=== PATIENT | female | born 1995 | race Caucasian/White ===

== ENCOUNTER 2020-05-01 07:16 | Outpatient (CLI) | payer MEDICAID, SELFPAY ==
[2020-05-04 02:34] LABS: SARS-CoV-2 RNA Undetected (Undetected); SARS-CoV-2 Specimen Source Nasopharynx
== END 2020-05-01 07:36 ==
DX: Z11.59 Encounter for screening for other viral diseases (principal)
CPT/HCPCS: U0003

== ENCOUNTER 2020-12-12 15:10 | Outpatient (CLI) | payer OTHER, MEDICAID, SELFPAY ==
[2020-12-12] MEDS: Breeza Beverage 473 ML BTL PO ×2 (12:13→12:14)
[2020-12-12] MEDS: Omnipaque 350 MG/ML 50 ML BTL IJ (12:13)
[2020-12-12 12:44] LABS: Abs Immature Grans 0.02 10^3/uL (0.0-0.06); Absolute Basophil Count 0.04 10^3/uL (0.0-0.2); Absolute Eosinophil Count 0.07 10^3/uL (0.0-0.7); Absolute Lymphocyte Count 1.45 10^3/uL (1.2-3.4); Absolute Monocyte Count 0.31 10^3/uL (0.1-0.8); Absolute Neutrophil Count 4.86 10^3/uL (1.2-6.7); Basophils % 0.6; HCT 35.5 % (36.0-46.0); HGB 10.9 g/dL (11.2-15.7); Immature Grans % 0.3; Lymphocytes % 21.5; MCH 24.6 pg (27.0-33.0); MCHC 30.7 % (32.0-36.0); MCV 80.1 fL (80-95); MPV 11.1 fL (8.0-11.0); Monocytes % 4.6; Nucleated RBC 0 %; Platelet Count 297 10^3/uL (130-400); RBC 4.43 10^6/uL (3.93-5.22); RDW 16.3 % (11.7-14.6); RDW-SD 46.9 fL; WBC 6.75 10^3/uL (4.4-10.8)
[2020-12-12 13:01] LABS: ALT 14 U/L (14-59); AST 17 U/L (15-37); Albumin 3.8 g/dL (3.4-5.0); Alkaline Phosphatase 89 U/L (46-116); Anion Gap 8.5 mmol/L (3-11); BUN 7 mg/dL (7-18); Bilirubin, Total 0.4 mg/dL (0.2-1.0); CO2 27.5 mmol/L (21.0-32.0); CREATININE 0.7 mg/dL (0.55-1.02); Chloride 105 mmol/L (98-107); Glucose 95 mg/dL (74-106); Potassium 4.2 mmol/L (3.5-5.1); Sodium 141 mmol/L (136-145); Total Protein 8.2 g/dL (6.4-8.2)
[2020-12-12] MEDS: Normal Saline - Diluent 50 ML VIAL IV (13:13)
[2020-12-12] MEDS: Omnipaque 350 MG/ML 100 ML BTL IJ (13:13)
--- NOTE | 2020-12-12 13:56 | DI.CT_ITS ---
Exam(s) CT ABDOMEN PELVIS W EXAM: CT ABDOMEN PELVIS W CLINICAL HISTORY: RLQ ABD PAIN, R10.31. TECHNIQUE: Imaging Protocol: Axial computed tomography images with coronal and sagittal reformatted images were created and reviewed CONTRAST MATERIAL: Intravenous: Omnipaque 100cc Oral: Yes COMPARISON: No exams were available for comparison FINDINGS: VISUALIZED LUNG BASES: No nodules nor pleural effusions evident. ABDOMEN: There is no ascites. LIVER: There are no focal hepatic lesions evident . GALLBLADDER/BILIARY: No obvious gallbladder pathology. CBD is not dilated. PANCREAS: No evidence of pancreatic mass nor dilatation of the pancreatic duct. SPLEEN: Spleen is not enlarged. No obvious intrasplenic lesions. Splenic and portal veins are paten t. ADRENALS: There are no significant adrenal masses. KIDNEYS:No cysts evident. No solid renal masses. No calculi nor hydronephrosis.. ABDOMINAL AORTA: Abdominal aorta is not enlarged. LYMPH NODES:There is no retroperitineal nor paraaortic adenopathy. ABDOMINAL WALL: No evidence of significant anterior abdominal wall hernia. GI: There is no evidence of bowel obstruction, free air, nor abscess. PELVIS: GI: No evidence of appendicitis.No evidence of sigmoid diverticulitis. LYMPH NODES: There is no intrapelvic nor inguinal adenopathy. REPRODUCTIVE: There is a large mass above the urinary bladder extending off the superior aspect of th e uterus and extending up from the pelvis into the abdomen measuring 19.5 cm cephalocaudal length by 10 cm AP by 16 cm wide. This is probably multiple grossly abnormal and necrotic fibroids. Is diffic ult to isolate the ovaries as separate from this structure. There is no free fluid in the pelvis URINARY BLADDER: No calculi nor obvious masses evident OSSEOUS: No significant osseous lesions. IMPRESSION: 1. Main finding here is huge pelvic mass arising out of the pelvis into the abdomen measuring approxi mately 19.5 x 10 x 16 cm and probably multiple huge uterine fibroids, some necrotic. It is difficult to delineate the ovaries as separate structures.. However, this is probably uterus origin. There i s no free fluid in the pelvis. 2. There is no ascites in the upper abdomen. 3. No obvious lymphadenopathy 4. Visualized lung bases are clear. RADIATION DOSE DELIVERED: 1,424.58mGy.cm Total DLP DATA REPOSITORY: All CT scans at this facility are submitted to the National Radiology Data Registry (NRDR) Dose Index Registry (DIR) with the [employer] (ACR). RADIATION OPTIMIZATION: All CT scans at this facility use at least one of these dose optimization te chniques: automated exposure control; mA and/or kV adjustment per patient size (includes targeted exa ms where dose is matched to clinical indication); or iterative reconstruction.
== END 2020-12-12 15:30 ==
PROVIDERS: Visit Provider Nurse Practitioner Family
DX: R10.31 Right lower quadrant pain (principal); R19.09 Other intra-abdominal and pelvic swelling, mass and lump; D25.9 Leiomyoma of uterus, unspecified
CPT/HCPCS: 80053; 74177; 85025; J3490; Q9967

== ENCOUNTER 2020-12-13 16:04 | Outpatient (REF) | payer OTHER, MEDICAID, SELFPAY ==
--- NOTE | 2020-12-13 15:15 | ENDOMET_PTH ---
PATIENT: Arielle Jones LOC: [facility] U#:[id number] AGE/SX: 25/F ROOM: RE12/13/[address]: Symone Mann DO : 1995 BED: DIS: 12/13/2020 SPEC #: [id number] RECD: 12/13/20 17:19 STATUS: AMIRA REQ #: [id number] RYANN: 12/13/20 15:[address]: Symone Mann DEPT: Surgical Specimen RECD BY: Ana Baez ENTERED: 12/13/20 17:20 SP TYPE: Endomet OTHR DR: No Local Tissues: 1 - ENDOMETRIUM BX/CURRETTE Procedures: GROSS AND MICRO LEVEL 4 Comments: [id number]
== END 2020-12-13 16:05 | disposition home or self-care (01) ==
LOC: LBN 16:04
PROVIDERS: Visit Provider Obstetrics & Gynecology
DX: N93.8 Other specified abnormal uterine and vaginal bleeding (principal); D25.9 Leiomyoma of uterus, unspecified; N85.8 Other specified noninflammatory disorders of uterus
CPT/HCPCS: 88305

== ENCOUNTER 2021-05-06 03:02 | Outpatient (CLI) | payer MEDICAID, SELFPAY ==
[2021-05-06 15:51] LABS: Source Nasal/Nares
[2021-05-06 21:29] LABS: COVID-19 PCR Negative (Negative)
== END 2021-05-06 03:03 | disposition home or self-care (01) ==
LOC: LBO 03:02
PROVIDERS: PCP Nurse Practitioner Family; Visit Provider Family Medicine
DX: Z20.822 Contact with and (suspected) exposure to COVID-19 (principal); Z01.818 Encounter for other preprocedural examination
CPT/HCPCS: 87635

== ENCOUNTER 2021-05-08 01:22 | Outpatient (CLI) | payer MEDICAID, SELFPAY ==
--- NOTE | 2021-05-08 13:44 | ST.MBS_ITS ---
Date of Service Date of service: 05/08/21 Time of Service: 13:45 Modified Barium Swallow Study Findings: Videofluoroscopic Swallowing Evaluation / Modified Barium Swallow Study (VFSE/MBSS) Speech Language Pathology Report HPI: Patient is a 25 year old female referred for VFSE/MBSS from Dr Turcios after CSE, given episode of choking in October/November and new onset of dysphagia. Subjective Patient states she had an episode where she choked back in October (on salmon and creamy spinach) and then her 'throat just said nope and was able to swallow liquids but not solids for about two days', also indicated that swallowing saliva had been difficult. Reports she does have a history of choking (back in grade school, while on train). Denies any changes with breathing, occasionally will take Claritin given allergy to cat. Reports eating much more slowly than she normally would prior to recent choking episode, although has always been a slow eater, so this has become even more pronounced. Had been on abx previously (right before choking episode) which is approximately when she started having issues. Reports her thyroid was checked recently, levels were fine. Describes having to consciously think about swallowing, states It's like the hesitancy right before you're about to choke. No GI or Pulmonary hx reported. OBJECTIVE: Predisposing dysphagia risk factors: N/A Clinical signs of possible chronic dysphagia: reported diet modification, use of adaptive strategies Precipitating dysphagia risk factors / triggering event: episode of choking in October/November RR: 16 / room air Cranial nerve exam / Oral Motor: CN V: WFL CN VII: WFL CN IX/X: WFL CN XII: Intact b/l Dentition/Oral Structures/Hygiene: anterior maxillary and mandibular incisors present maxillary and mandibular premolars present oral hygiene appears adequate-reports consistent and appropriate oral care regimen Language: verbal expression/fluency, naming, repetition, and auditory comprehension WFL Hearing: WFL Mental Status: AAOx3, recall of current events intact Speech: WFL Laryngeal function exam: Secretions: WFL Vocal quality: WFL MPT: DNT S/Z ratio: DNT Pitch range: WFL Cough: (volitional) perceptually WFL Standardized Subjective Measures: RSI = 2 (WFL) Score greater than or equal to 13 is clinically significant and may be indicative of significant reflux disease EAT-10 = 9 Score of 3 or higher may indicate problems swallowing efficiently and safely OBJECTIVE: Videofluoroscopic Swallow Evaluation (VFSE/MBSS) was conducted in the lateral and [id number] projections by Speech-Language Pathologist, in collaboration with Radiologist, to evaluate oropharyngeal swallow function. Anatomic view under fluoroscopy: WFL PO barium contrast trials: Oral barium water soluble contrast was administered as follows: IDDSI Level 0 Varibar thin liquid (40% w/v) IDDSI Level 2 Varibar nectar thick/mildly thick liquid (40% w/v) IDDSI Level 3 Varibar thin honey/liquidised/moderately-thick (40% w/v) IDDSI Level 4 Varibar pudding/pureed/extremely thick (40% w/v) IDDSI Level 7 Regular Solid: 1/2 angel cracker coated in 3 mL Varibar pudding PHYSIOLOGIC FINDINGS Oral Phase 1 Lip Closure: 0-No labial escape 2 Tongue Control: 0- Cohesive bolus between tongue to palatal seal 3 Bolus Preparation/Mastication: 1- Slowed/prolonged chewing/mashing; piecemeal deglutition with complete recollection 4 Bolus Transport/Lingual Motion: 0- Brisk tongue motion 5 Oral residue: 2- Residue collection on oral structures (solid only, piecemeal deglutition) Location: palate, tongue 6 Initiation of pharyngeal swallow: 2- Bolus head at posterior laryngeal surface of epiglottis Pharyngeal Phase 7 Velar Elevation: 0- No bolus between soft palate and pharyngeal wall 8 Laryngeal Elevation: 1- Partial superior movement of thyroid cartilage with partial approximation of arytenoids to epiglottic petiole 9 Anterior Hyoid Excursion: 1- Partial anterior movement 10 Epiglottic Movement: 1- Partial inversion 11 Laryngeal Vestibule Closure: 1- Incomplete; narrow column of air/contrast in laryngeal vestibule Trace flash penetration occurs during initial swallow onset from current bolus *occasional 12 Pharyngeal Stripping Wave: 0- Present; complete 13 Pharyngeal Contraction: 0- Complete 14 PES/UES Openin- Complete distension and complete duration; no obstruction of flow 15 Tongue Base Retraction: 0- No contrast between tongue base and posterior pharyngeal wall 16 Pharyngeal residue: 0-Complete pharyngeal clearance Location: N/A Priscila Pharyngeal Residue Severity Rating Scale (YPRS) (Dalila et miya, 2015) Vallecula Residue Severity I None 0% No residue; vallecular aggregation during piecemeal deglutition Pyriform Sinus Residue Severity I None 0% No residue Esophageal Phase 17 Esophageal Clearance Upright Position: 0-Complete clearance; esophageal coating NOTE: This study was performed for interpretation only of the oropharyngeal and pharyngoesophageal domains of swallowing. It is not intended to diagnose any other radiologic abnormalities or substitute for a formal esophagram study. Overall 8-Point Penetration-Aspiration Scale (PAS) (Keke, et al, 1996) 1 - No material enters the airway. 2 - Material enters the airway, remains above the vocal folds, and is ejected from the airway. 3 - Material enters the airway, remains above the vocal folds, and is not ejected from the airway. 4 - Material enters the airway, contacts the vocal folds, and is ejected from the airway. 5 - Material enters the airway, contacts the vocal folds, and is not ejected from the airway. 6 - Material enters the airway, passes below the vocal folds, and is ejected into the larynx or out of the airway. 7 - Material enters the airway, passes below the vocal folds, and is not ejected from the trachea despite effort. 8 - Material enters the airway, passes below the vocal folds, and no effort is made to eject. Clinical Indicator(s) of Prandial/Postprandial Aspiration: N/A Trialed Compensatory Swallow Strategies & Outcome: Postures: N/A Maneuvers: 3-second Preparatory Set - no change Bolus Modifications: Reduced Volume - successful in reducing likelihood of penetration Reduced Rate of Intake - no change Increased Viscosity - no change Reduced Viscosity: ie, thin liquids - improvement in swallow onset timing Dysphagia Outcome and Severity Scale (YANELI) LEVEL 7 - Full PO: normal diet - Normal in all situations IMPRESSIONS: Swallow safety is preserved; swallow efficiency is mildly impaired. Patient is at low risk for aspiration-related pulmonary complication, given adequate oral hygiene & presumed immunocompetence; discussed findings from VFSE/MBSS and reviewed initial images today; mild oropharyngeal dysphagia as characterized by piecemeal deglutition/prolonged mastication, occasional mild delay re: pharyngeal swallow onset (ie, bolus head at posterior laryngeal surface of epiglottis, moreso with increased viscosity), mildly reduced laryngeal elevation and anterior hyoid excursion, partial epiglottic inversion, and occasional partial laryngeal vestibule closure, resulting in occasional, flash penetration during initial swallow onset from current bolus (moreso with less viscous consistencies); discussed with patient that both piecemeal deglutition and vallecular aggregation are variants of what is considered normal with regard to oropharyngeal swallowing physiology; these also appear to be behavioral components of what patient reports to be her baseline vs new onset; patient remains sensate to all of this as well. Cause of dysphagia presentation at this time is suspected to be secondary effect(s) from having experienced choking episode back in October/November, ie resulting in hesitation (timing / delay) and evidence of mild pharyngeal atrophy from behavioral changes (texture modification). Swallow prognosis is excellent, given current age, overall health status, and previous demonstration/comprehension re: risk management as outlined. Patient may benefit from specific pharyngeal exercise program to address swallow onset timing and pharyngeal strengthening with RETAIL MARKETING MANAGER guidance; there is also a likelihood that continued p.o. intake of level 7 solid textures over time may increase oropharyngeal swallowing efficiency to patient's baseline. PLAN: Diet recommendation: IDDSI Level 7-Regular Solids, 0-Thin Liquids Please see further details at www.iddsi.org Diet texture modification is per patient's preference; please adjust diet textures at patient's discretion & collaboration with care team. Medication Intake: Whole with 0-Thin Liquids or as tolerated Alter medications only as advised by MD or Pharmacist RISK MANAGEMENT: Oral hygiene BID/2x per day using friction with toothbrush on all oral structures as tolerated Upright as tolerated for all PO intake. Physical mobility as tolerated. Level of Assistance/Supervision: Independent Strategies/Adaptations/Assistive Equipment: Reduce auditory and/or visual distractions when eating, Small sips and bites when eating, Alternate intake of liquids and solids Posture/Positioning Needs: Maintain upright position at least 30 minutes after meals, Avoid meals/snacks 2- 3 hours prior to reclining/sleeping, Sleep with head of bed elevated to reduce likelihood of nocturnal reflux Specialist referrals: N/A Follow-up exam: N/A Therapy: Recommend subsequent follow up visit with RETAIL MARKETING MANAGER to review outcomes from today's study per patient discretion. Thank you for allowing me to take part in this patient's care. Please feel free to contact me with any questions/concerns. Cleo Ojeda MA CCC-RETAIL MARKETING MANAGER Speech Language Pathologist [phone] Coding CPT Codes MOTION FLUOROSCOPY/SWALLOW - [id number] ([id number])
--- NOTE | 2021-05-08 14:26 | DI.RAD_ITS ---
Exam(s) RF MODIFIED SPEECH BA SWALLOW TECHNIQUE: Modified barium swallow was performed in conjunction with speech pathology. CONTRAST MATERIAL: Oral barium contrast was administered according to protocol. COMPARISON: No exams were available for comparison FINDINGS: Note that this is not a dedicated esophagram, distal esophagus not evaluated. There is no evidence of aspiration or penetration of thick or thin liquids or barium coated cookies. Speech pathology report to follow. IMPRESSION: No evidence of aspiration or penetration. RADIATION DOSE DELIVERED: robert Patel=14.8 mGy
[2021-05-08] MEDS: Barium Sulfate 81% w/w for Oral Suspension 148 GM BTL 80 GM PO (14:36)
[2021-05-08] MEDS: Barium Sulfate Oral Paste 40% W/V 230 ML TUBE 13 ML PO (14:57)
== END 2021-05-08 01:42 ==
PROVIDERS: PCP Nurse Practitioner Family; Visit Provider Speech-Language Pathologist
DX: R13.19 Other dysphagia (principal)
CPT/HCPCS: 92610; 74221

== ENCOUNTER 2021-12-08 01:16 | Emergency (ER) | payer MEDICAID, SELFPAY ==
[2021-12-08] VITALS (29 sets, daily range): BP systolic 131–146; BP diastolic 71–84; PULSE 85–117; RESP 4–31; TEMP 37.2; O2SAT 90–100
--- NOTE | 2021-12-08 01:30 | DI.RAD_ITS ---
Exam(s) XR PORTABLE CHEST AP EXAM: XR PORTABLE CHEST AP CLINICAL HISTORY: cough. TECHNIQUE: 2D digital imaging was performed. COMPARISON: No exams were available for comparison FINDINGS: LUNGS: Clear. No pleural abnormality seen. HEART: Normal. MEDIASTINUM: Normal. OTHER FINDINGS: None. IMPRESSION: No acute pulmonary findings. DATA REPOSITORY: RADIATION DOSE DELIVERED: Total DLP
--- NOTE | 2021-12-08 01:48 | ED.GENADUL_ITS ---
Discharge Plan Disposition Patient Disposition: HOME Condition: Stable Discharge Details Clinical Impression: Pneumonia Primary Care Provider: Ann-Marie Zamora ED Provider: Messi Bowen Home Meds and New Rx's Prescriptions: New doxycycline hyclate 100 mg tablet 100 mg PO BID Qty: 9 0RF Continued loratadine-pseudoephedrine [Claritin-D 24 Hour] 10-240 mg tablet extended release 24 hr 1 tab PO PRN diclofenac potassium [Cataflam] 50 mg tablet 50 mg PO BID Qty: 30 1RF ibuprofen 200 mg Tablet 200 mg PO Q6H PRN Discharge Instructions Additional Instructions: Please use albuterol inhaler as follows: 2 puffs inhaled every 4-6 hours as needed for shortness of breath or wheezing. Please take full course of antibiotic as prescribed. You were given an initial dose this morning. Your next dose is this afternoon/evening. Please drink plenty of fluids to stay hydrated. Allow for plenty of rest. Please contact your primary care physician to arrange follow-up. Return to the ER immediately for any worsening or new concerning symptoms. Referrals: Ann-Marie Zamora [Primary Care Provider] - Discharge Data Discharge Date/Time-TO BE ENTERED AT DEPARTURE: 12/08/21 04:44 Medical Decision Making 152 --26-year-old female with 3 days of respiratory symptoms including congestion, sore throat and cough, now with wheezing and difficulty breathing tonight. Patient saturating in mid 90s and tachycardic with wheeze and rales right lower lung. Concern for pneumonia. Consider COVID. Patient is within window for paxlovid and meets criteria for treatment given BMI. I will check stat COVID test Consider acute bacterial pneumonia. Will obtain chest x-ray. Will give IV fluid bolus for tachycardia. Patient received DuoNeb breathing treatment for wheeze and shortness of breath. 312 -- COVID and influenza negative. Labs reviewed and nondiagnostic. HR improved with IVF. Still with saturations in low 90s. Will give additional neb treatment and initiate treatment for PNA with doxycycline. 420 --patient reassessed and saturation significantly improved her second neb. I will provide albuterol inhaler with spacer and instructions on use. Plan to continue course of doxycycline. Patient has received approximately 750 mL of IV fluid bolus. She will be encouraged to maintain adequate oral hydration. I will have her follow-up with her primary care physician later this week for reassessment. She was encouraged to return immediately should she have any worsening or new concerning symptoms. Usual customary discharge instructions reviewed with her. HPI General Mode of arrival: ambulatory . Date/Time Provider Initiated Documentation: 12/08/21 01:37 . Limitations to Documentation: no limitations . Information obtained by: patient . HPI Narrative: 26-year-old female presents with chief complaint of difficulty breathing. Patient notes she had respiratory symptoms including sore throat, congestion and cough for the past 3 days. Breathing worse tonight with associated wheezing. Symptoms moderate. No modifiers. No associated fever. She has had negative home COVID tests. She is vaccinated and not boosted for COVID. Related Data Home Medications Medication Instructions Recorded Confirmed diclofenac potassium 50 mg tablet 50 mg PO BID #30 tabs 12/13/20 12/13/20 (Cataflam) loratadine-pseudoephedrine ER 10 1 tab PO PRN 12/13/20 12/08/21 mg-240 mg tablet,extended [id number] (Claritin-D 24 Hour) doxycycline hyclate 100 mg tablet 100 mg PO BID #9 tabs 12/08/21 ibuprofen 200 mg tablet 200 mg PO Q6H PRN 12/08/21 12/08/21 Previous Rx's Medication Instructions Recorded diclofenac potassium 50 mg tablet 50 mg PO BID #30 tabs 12/13/20 (Cataflam) doxycycline hyclate 100 mg tablet 100 mg PO BID #9 tabs 12/08/21 Allergies Allergy/AdvReac Type Severity Reaction Status Date / Time No Known Allergies Allergy Verified 12/08/21 01:28 General Stated Complaint: RespSymp GREG: 3 Review of Systems All systems reviewed & are unremarkable except as noted in HPI and below Constitutional Constitutional: Denies fever(s) Respiratory Respiratory: Reports as per HPI PFSH All Active Problems (Updated 12/08/21 @ 04:21 by Messi Bowen MD) Pneumonia (Acute) Fibroid uterus (Acute) Uterine anomaly (Acute) Family History Other Cancer Diabetes Fibroid uterus Social History Smoking/Tobacco Use Status: Never Second Hand Exposure: Yes Smoking risk assessment performed?: Yes Alcohol Intake: current Alcohol Intake frequency: other Details: once a month Drug use: Occasionally Substance use type: marijuana Details: Edibles Household members: none Number of Children: 0 Seatbelt use: always Do you feel safe at home: Yes Do you feel safe in your relationship?: Yes History History 0 Para Hx # Term Pregnancies Multiple births Hx # Pregnancies Ectopic pregnancies AB induced Hx Number of Living Children AB spontaneous Exam Const General: cooperative and no acute distress HENMT Mouth: moist mucous membranes Eyes Conjunctivae: normal conjunctivae Sclera: normal sclerae Neck Neck: trachea midline and supple Resp Auscultation: rales on the right (lower), no rhonchi and wheezes right lower Cardio Rate: tachycardic Rhythm: regular rhythm GI Palpation: soft, not firm, no guarding, no masses, not rigid and nontender Skin General skin exam: no rashes or lesions noted Neuro General: patient alert, patient awake and tone normal Extrem General: no calf tenderness and no edema Psych Appearance: grossly normal Mental Status: mental status grossly normal Speech and Movement: speech and movement normal Course Vital Signs Vital signs: Vital Signs Temperature 37.2 C 12/08/21 01:25 Pulse 104 H 12/08/21 01:25 Respiratory Rate 22 12/08/21 01:25 Blood Pressure 137/79 12/08/21 01:25 Pulse Oximetry 95 12/08/21 01:25 Temperature 37.2 C 12/08/21 01:25 Temperature Source Oral 12/08/21 01:25 Pulse 104 H 12/08/21 01:25 Respiratory Rate 22 12/08/21 01:29 Respiratory Effort 12/08/21 01:29 Respiratory Depth Shallow 12/08/21 01:29 Respiratory Pattern Normal 12/08/21 01:29 Blood Pressure 137/79 12/08/21 01:25 Blood Pressure Position Sitting 12/08/21 01:25 Pulse Oximetry 95 12/08/21 01:25 Oxygen Delivery Method Room Air 12/08/21 01:25 Oxygen Flow Rate 0 12/08/21 01:25 Pain Level 0 12/08/21 01:25 Lab/Test Results Lab/Test Results: Laboratory Tests Range/Units 12/08/21 01:45 SARS-CoV-2 (PCR) Cancelled Nasopharyn COVID-19 PCR Cancelled Ref Test Perform Site Cancelled
[2021-12-08] MEDS: Albuterol/Ipratropium 3 ML UPD VIAL UPD ×2 (02:12→03:42)
[2021-12-08 02:38] LABS: Abs Immature Grans 0.01 10^3/uL (0.0-0.06); Absolute Basophil Count 0.01 10^3/uL (0.0-0.2); Absolute Eosinophil Count 0.24 10^3/uL (0.0-0.7); Absolute Lymphocyte Count 1.19 10^3/uL (1.2-3.4); Absolute Neutrophil Count 5.67 10^3/uL (1.2-6.7); Basophils % 0.1; Eosinophils % 3.1; HCT 35.9 % (36.0-46.0); Immature Grans % 0.1; Lymphocytes % 15.6; MCH 24.9 pg (27.0-33.0); MCHC 30.6 % (32.0-36.0); MCV 81 fL (80-95); MPV 10.8 fL (8.0-11.0); Monocytes % 6.6; Neutrophils % 74.5; Platelet Count 277 10^3/uL (130-400); RBC 4.42 10^6/uL (3.93-5.22); RDW 15.9 % (11.7-14.6); RDW-SD 46.5 fL; WBC 7.62 10^3/uL (4.4-10.8)
[2021-12-08] MEDS: Lactated Ringers 1,000 ML 1000 ML IV (02:45)
[2021-12-08 02:55] LABS: Anion Gap 10.7 mmol/L (3-11); BUN 7 mg/dL (7-18); CO2 24.3 mmol/L (21.0-32.0); CREATININE 0.7 mg/dL (0.55-1.02); Calcium 8.6 mg/dL (8.5-10.1); Chloride 104 mmol/L (98-107); Glucose 102 mg/dL (74-106); Potassium 3.7 mmol/L (3.5-5.1); Sodium 139 mmol/L (136-145)
[2021-12-08 02:58] LABS: COVID-19 PCR Negative (Negative); Influenza A PCR Negative (Negative); Influenza B PCR Negative (Negative); RSV PCR Negative (Negative)
[2021-12-08 03:06] LABS: Source Nasopharynx
[2021-12-08] MEDS: Doxycycline Hyclate 100 MG CAP PO (03:42)
--- NOTE | 2021-12-08 04:29 | DI.VRAD_ITS ---
PROCEDURE INFORMATION: Exam: XR Chest Exam date and time: 12/08/2021 2:36 AM Age: 26 years old Clinical indication: Cough and wheezing; Patient HX: Cough; Per PT: Wheezing TECHNIQUE: Imaging protocol: XR of the chest. Views: 1 view. COMPARISON: CT ABDOMEN PELVIS W 12/12/2020 1:41 PM FINDINGS: Lungs: Unremarkable. No consolidation. Pleural spaces: Unremarkable. No pleural effusion. No pneumothorax. Heart/Mediastinum: Unremarkable. No cardiomegaly. Bones/joints: Unremarkable. IMPRESSION: No acute findings. Dictated and Authenticated by: Buddy Parr MD. Ordering:HEATHER Swenson MD
[2021-12-08] MEDS: Albuterol HFA 8 GM 60 PUFF INH IH (04:30)
[2021-12-08] MEDS: Inhaler, Assist Device 1 EACH MC (04:47)
== END 2021-12-08 04:44 | disposition home or self-care (01) ==
PROVIDERS: Emergency Provider Student in an Organized Health Care Education/Training Program; PCP Nurse Practitioner Family
DX: J18.9 Pneumonia, unspecified organism (principal); R05.1 Acute cough; R00.0 Tachycardia, unspecified; Z20.822 Contact with and (suspected) exposure to COVID-19
CPT/HCPCS: 80048; 87637; 94640; 96360; 96361; 99284; U0003; 71045; 85025; J7620

== ENCOUNTER → 2022-02-06 15:27 | Outpatient (CLI) | payer MEDICAID, SELFPAY ==
--- NOTE | 2022-02-06 | DI.RAD_ITS ---
Exam(s) XR SHOULDER RT COMPLETE 2+V EXAM: XR SHOULDER RT COMPLETE 2+V CLINICAL HISTORY: PAIN IN RT SHOULDER--M25.511. TECHNIQUE: 2D digital imaging was performed. COMPARISON: No exams were available for comparison FINDINGS: Four views No evidence of fracture or dislocation. However, there is calcification noted in the subacromial spa ce consistent with calcific rotator cuff tendinitis-bursitis. There are no degenerative changes in t he glenohumeral and AC joints. Bone density normal. No osseous lesions. IMPRESSION: Calcific rotator cuff tendinitis-bursitis DATA REPOSITORY: RADIATION DOSE DELIVERED:
== END ==
PROVIDERS: PCP Nurse Practitioner Family; Visit Provider Physician Assistant Medical
DX: M75.51 Bursitis of right shoulder (principal); M75.31 Calcific tendinitis of right shoulder
CPT/HCPCS: 73030

== ENCOUNTER 2023-09-05 02:12 | Emergency (ER) | payer MEDICAID, SELFPAY ==
[2023-09-05] VITALS (17 sets, daily range): BP systolic 122–152; BP diastolic 69–96; PULSE 54–97; RESP 18–20; TEMP 36.1; O2SAT 96–100
--- NOTE | 2023-09-05 02:00 | RT.EKG_ITS ---
APPROVED REPORT Exam: Resting ECG Reason for Exam: SOB Patient Location: E HR:89 bpm ECG Measurements Heart Rate 89 AXIS IL 156 P 29 QRSd 86 QRS 3 QT 433 T -4 QTc 527 Conclusion Sinus rhythm... V-rate 60- 99 limited interp 2/t baseline artifact, no overt ischemic changes
--- NOTE | 2023-09-05 02:24 | ED.GENADUL_ITS ---
HPI General Mode of arrival: ambulatory . Date/Time Provider Initiated Documentation: 09/05/23 02:21 . Limitations to Documentation: no limitations . Information obtained by: patient . HPI Narrative: 28yo F presenting with shortness of breath and lightheadedness intermittently for the past 2 days. Symptoms seem to occur mostly at night. Feels like she is going to pass out and like she can't get enough oxygen. 2-3 episodes a day. No chest pain at any point. Recent road trip to [place]. No hormone exposure. No prior hx of blood clots. She is otherwise in her usual state of health with no fevers, chills, rash, nausea, vomiting, abdominal pain, numbness, tingling, weakness, dysuria, hematuria, LE edema, orthopnea, dyspnea on exertion, or other concerns. Related Data Home Medications Medication Instructions Recorded Confirmed loratadine-pseudoephedrine ER 10 1 tab PO PRN 12/13/20 09/05/23 mg-240 mg tablet,extended lnedrrb12yl (Claritin-D 24 Hour) ibuprofen 200 mg tablet 200 mg PO Q6H PRN 12/08/21 09/05/23 Allergies Allergy/AdvReac Type Severity Reaction Status Date / Time cat dander Allergy Verified 09/05/23 02:25 General Stated Complaint: SOB GREG: 3 Review of Systems Narrative: see HPI Exam Narrative Exam Narrative: General: Alert, well appearing, well nourished, in no acute distress. Head: Normocephalic, atraumatic Neck: Trachea midline, ?Neck supple. ENT: ?MMM.? Cardiac: ?RRR, no murmurs appreciated Resp: No respiratory distress. CTAB. Abd: ?Soft, non-distended, nontender : ?No suprapubic tenderness. Extremities: ?No deformities.? No peripheral edema. Symmetric LE. Neurologic: GCS 15. ? Moves all extremities freely against gravity Course Vital Signs Vital signs: Vital Signs Temperature 36.1 C L 09/05/23 02:18 Pulse 97 H 09/05/23 02:18 Respiratory Rate 20 09/05/23 02:18 Blood Pressure 152/96 H 09/05/23 02:18 Pulse Oximetry 98 09/05/23 02:18 Temperature 36.1 C L 09/05/23 02:18 Temperature Source Skin 09/05/23 02:18 Pulse 97 H 09/05/23 02:18 Respiratory Rate 20 09/05/23 02:21 Respiratory Effort Incrsd Work of Breathing 09/05/23 02:21 Respiratory Depth Shallow 09/05/23 02:21 Respiratory Pattern Normal 09/05/23 02:21 Blood Pressure 152/96 H 09/05/23 02:18 Blood Pressure Position Sitting 09/05/23 02:18 Pulse Oximetry 98 09/05/23 02:18 Oxygen Delivery Method Room Air 09/05/23 02:18 Oxygen Flow Rate 0 09/05/23 02:18 Pain Level 0 09/05/23 02:18 Medical Decision Making 28yo F presenting with shortness of breath and lightheadedness intermittently for the past 2 days, mostly at night. 2-3 episodes /day. No chest pain at any point, no significant family cardiac history, no personal history of blood clots. Recent 5 [address] trip, obese; no other risk factors for blood clots and no indication of lower extremity DVT on exam. There may be a component of anxiety as she described racing thoughts when these events occur. Slightly tachycardiac on arrival to mid 90's, vital signs otherwise reassuring. Has used albuterol in the past; will try here and see if it helps though she is not wheezing on my exam. Will evaluate for life-threatening causes with EKG/CXR/labs. Initial EKG limited 2/t baseline artifact (machine calculates borderline prolonged QTc, doubt accurate); repeat EKG NSR, appropriate intervals, no ST segment or T wave abnormalities to suggest occlusive MN. CXR independently reviewed, no focal pneumonia or pneumothorax on my view and no pulmonary edema; agree with radiology read below. Orthostatic vital signs normal. Labs reviewed as below, CBC reassuring with no leukocytosis or anemia. CMP with normal electrolytes and bi significant abnormalities. Mg normal. Troponin negative. negative. VBG with respiratory alkalosis consiste nt with hyperventilation. Dimer slightly elevated; CTA for PE ordered with no large saddle embolus on my view, agree with radiology read below. She reports that the albuterol did not seem to make a difference. On reassessment she remains well appearing with no respiratory distress, ambulates steadily without symptoms, repeat vital signs reassuring with HR in 60's. Suspect likely anxiety (though KALEB possibly contributing); recommended that she follow up with her PCP. Discharged home; discharge instuctions and return precautions were reviewed with patient who verbalized understanding. All questions were answered and she is in full agreement with the plan. Imaging Data Radiologic Study: Imaging: X-Ray Radiologist's impression: FIMPRESSION: No acute findings. Radiologic Study #2: Imaging: CT Scan Radiologist's impression: IMPRESSION: No acute findings. Lab Data Lab results reviewed: Yes I reviewed the patient's lab results. Labs: Laboratory Tests Range/Units 09/05/23 02:30 WBC (4.4-10.8) 10^3/uL 7.55 RBC (3.93-5.22) 10^6/uL 4.59 Hgb (11.2-15.7) g/dL 11.9 Hct (36.0-46.0) % 37.7 MCV (80-95) fL 82 MCH (27.0-33.0) pg 25.9 L MCHC (32.0-36.0) % 31.6 L RDW (11.7-14.6) % 14.8 H Plt Count (130-400) 10^3/uL 313 MPV (8.0-11.0) fL 10.9 Immature Gran % 0.1 Neutrophils % 38.8 Lymphocytes % 48.2 Monocytes % 8.1 Eosinophils % 4.1 Basophils % 0.7 Nucleated RBC % (0.0-0.3) % 0.0 Absolute Neutrophils (1.2-6.7) 10^3/uL 2.93 Absolute Lymphocytes (1.2-3.4) 10^3/uL 3.64 H Absolute Monocytes (0.1-0.8) 10^3/uL 0.61 Absolute Eosinophils (0.0-0.7) 10^3/uL 0.31 Absolute Basophils (0.0-0.2) 10^3/uL 0.05 D-Dimer (<500) ng/mlFEU 586 H VBG pH (7.31-7.41) 7.48 H VBG pCO2 (41-51) mmHg 30 L VBG pO2 mmHg 108 VBG HCO3 (23-28) mmol/L 22 L VBG Total CO2 (24-29) mmol/L 20 L VBG O2 Saturation % 99 VBG Base Excess (-2-3) mmol/L -1 Sodium (136-145) mmol/L 138 Potassium (3.5-5.1) mmol/L 3.6 Chloride (98-107) mmol/L 103 Carbon Dioxide (21.0-32.0) mmol/L 21.5 Anion Gap (3-11) mmol/L 13.5 H BUN (7-18) mg/dL 8 Creatinine (0.55-1.02) mg/dL 0.7 Est GFR (CKD-EPI 2020) (mL/min/1.73m2) 119.24 Glucose (74-106) mg/dL 108 H Calcium (8.5-10.1) mg/dL 9.0 Magnesium (1.8-2.4) mg/dL 1.9 Total Bilirubin (0.2-1.0) mg/dL 0.4 AST (15-37) U/L 20 ALT (14-59) U/L 19 Alkaline Phosphatase (46-116) U/L 89 Troponin I (< or =60) ng/L < 50 Total Protein (6.4-8.2) g/dL 7.7 Albumin (3.4-5.0) g/dL 3.6 Beta HCG, Quant (1-3) mIU/mL 1 Quality:SDOH Health Related Social Needs: No Data to Display PFSH All Active Problems (Updated 09/05/23 @ 03:57 by Malia Padgett MD) Shortness of breath (Acute) Fibroid uterus (Acute) Uterine anomaly (Acute) Family History Other Cancer Diabetes Fibroid uterus Social History Smoking/Tobacco Use Status: Never Second Hand Exposure: Yes Smoking risk assessment performed?: Yes Alcohol Intake: current Alcohol Intake frequency: other Details: once a month Drug use: Occasionally Substance use type: marijuana Details: Edibles Household members: none Number of Children: 0 Seatbelt use: always Do you feel safe at home: Yes Do you feel safe in your relationship?: Yes History History 0 Para Hx # Term Pregnancies Multiple births Hx # Pregnancies Ectopic pregnancies AB induced Hx Number of Living Children AB spontaneous Discharge Plan Disposition Patient Disposition: Home Condition: Good Discharge Details Clinical Impression: Shortness of breath Primary Care Provider: Ann-Marie Zamora ED Provider: Malia Padgett Home Meds and New Rx's Prescriptions: No Action loratadine-pseudoephedrine [Claritin-D 24 Hour] 10-240 mg tablet extended release 24 hr 1 tab PO PRN ibuprofen 200 mg Tablet 200 mg PO Q6H PRN Discharge Instructions Instructions: Dyspnea (ED) Additional Instructions: Call your primary care doctor today to schedule an appointment for within the next 5 days to follow up on your visit here. Return to the emergency department for new or worsening symptoms including fever, worsening difficulty breathing, passing out, or if you have any other concerns. Referrals: Ann-Marie Zamora [Primary Care Provider] -
--- NOTE | 2023-09-05 02:30 | DI.RAD_ITS ---
Exam(s) XR CHEST 2V PA LATERAL EXAM: XR CHEST 2V PA LATERAL CLINICAL HISTORY: short of breath. TECHNIQUE: 2D digital imaging was performed. COMPARISON: CR,XR XR PORTABLE CHEST AP from 12/08/2021 FINDINGS: 2 views: Heart size is normal. The mediastinum is not widened. Lungs are clear. No infiltrates nor pleural effusions. IMPRESSION: No acute pulmonary findings. DATA REPOSITORY: RADIATION DOSE DELIVERED:
[2023-09-05 02:44] LABS: BE (Venous) -1 mmol/L (-2-3); HCO3 (Venous) 22 mmol/L (23-28); O2 Sat (Venous) 99 %; TCO2 (Venous) 20 mmol/L (24-29); pCO2 (Venous) 30 mmHg (41-51); pH (Venous) 7.48 (7.31-7.41); pO2 (Venous) 108 mmHg
[2023-09-05 02:48] LABS: Abs Immature Grans 0.01 10^3/uL (0.0-0.06); Absolute Basophil Count 0.05 10^3/uL (0.0-0.2); Absolute Eosinophil Count 0.31 10^3/uL (0.0-0.7); Absolute Lymphocyte Count 3.64 10^3/uL (1.2-3.4); Absolute Monocyte Count 0.61 10^3/uL (0.1-0.8); Absolute Neutrophil Count 2.93 10^3/uL (1.2-6.7); Basophils % 0.7; Eosinophils % 4.1; HCT 37.7 % (36.0-46.0); HGB 11.9 g/dL (11.2-15.7); Immature Grans % 0.1; Lymphocytes % 48.2; MCH 25.9 pg (27.0-33.0); MCHC 31.6 % (32.0-36.0); MCV 82 fL (80-95); MPV 10.9 fL (8.0-11.0); Monocytes % 8.1; Neutrophils % 38.8; Platelet Count 313 10^3/uL (130-400); RBC 4.59 10^6/uL (3.93-5.22); RDW 14.8 % (11.7-14.6); RDW-SD 44.5 fL; WBC 7.55 10^3/uL (4.4-10.8)
[2023-09-05] MEDS: Inhaler, Assist Device 1 EACH MC (02:53)
[2023-09-05] MEDS: Albuterol HFA 8 GM 60 PUFF INH IH (02:53)
[2023-09-05 03:10] LABS: ALT 19 U/L (14-59); AST 20 U/L (15-37); Albumin 3.6 g/dL (3.4-5.0); Alkaline Phosphatase 89 U/L (46-116); Anion Gap 13.5 mmol/L (3-11); BUN 8 mg/dL (7-18); Bilirubin, Total 0.4 mg/dL (0.2-1.0); CO2 21.5 mmol/L (21.0-32.0); CREATININE 0.7 mg/dL (0.55-1.02); Chloride 103 mmol/L (98-107); Estimated GFR 119.24 (mL/min/1.73m2); Glucose 108 mg/dL (74-106); HCG Quant, Pregnancy 1 mIU/mL (1-3); Magnesium 1.9 mg/dL (1.8-2.4); Potassium 3.6 mmol/L (3.5-5.1); Sodium 138 mmol/L (136-145); Total Protein 7.7 g/dL (6.4-8.2); Troponin I < 50 ng/L (< or =60)
--- NOTE | 2023-09-05 03:15 | DI.CT_ITS ---
Exam(s) CT CHEST PE CTA EXAM: CT CHEST PE CTA CLINICAL HISTORY: sob tachycardiac +dimer. TECHNIQUE: Imaging Protocol: CT angiography of the chest was performed using pulmonary embolus diaz col. Multi planar reconstructions were performed. CONTRAST MATERIAL: Intravenous: Omnipaque 350 Contrast volume: 100 cc COMPARISON: CT CT ABDOMEN PELVIS W from 12/12/2020 FINDINGS: CHEST: PULMONARY ARTERIES: There are no intraluminal filling defects to suggest acute pulmonary emboli. LUNGS: There are mild increased subpleural benign-appearing markings in the left lower lobe basal seg ments but no confluent infiltrates nor pleural effusions and there is no evidence of pulmonary infarc tion. No ominous pulmonary nodules. No pleural effusions. No significant focal findings in the tra hina and mainstem bronchi. MEDIASTINUM: There is no hilar nor mediastinal adenopathy. Visualized thyroid unremarkable. CARDIAC: Heart size is upper normal. There is no pericardial effusion.Caliber of the thoracic aorta is within normal limits. There is no significant shift of the interventricular septum. PARTIALLY VISUALIZED UPPERMOST ABDOMEN: No obvious findings Other: There is a superficially located benign-appearing midline subcutaneous density measuring 1.8 b y 1.8 cm which is probably a sebaceous cyst in the anterior midline anterior to the sternum in the mckeon perficial subcutaneous fat. OSSEOUS: No significant osseous lesions.No fractures.. IMPRESSION: 1. No evidence of acute pulmonary emboli. No evidence of pulmonary infarction.No pleural effusions. 2. No intrathoracic adenopathy. 3. There is an 18 by 18 mm midline superficial subcutaneous probable sebaceous cyst. This is anterio r to the sternum but immediately subcutaneous RADIATION DOSE DELIVERED: 543.31mGy.cm Total DLP DATA REPOSITORY: All CT scans at this facility are submitted to the National Radiology Data Registry (NRDR) Dose Index Registry (DIR) with the [employer] (A[employer]). RADIATION OPTIMIZATION: All CT scans at this facility use at least one of these dose optimization te chniques: automated exposure control; mA and/or kV adjustment per patient size (includes targeted exa ms where dose is matched to clinical indication); or iterative reconstruction.
--- NOTE | 2023-09-05 03:16 | DI.VRAD_ITS ---
PROCEDURE INFORMATION: Exam: XR Chest Exam date and time: 09/05/2023 2:50 AM Age: 28 years old Clinical indication: Shortness of breath; Additional info: SOB x 2 days TECHNIQUE: Imaging protocol: Radiologic exam of the chest. Views: 2 views. COMPARISON: CR XR PORTABLE CHEST AP 12/08/2021 2:36 AM FINDINGS: Lungs: Unremarkable. No consolidation. Pleural spaces: Unremarkable. No pleural effusion. No pneumothorax. Heart/Mediastinum: Unremarkable. No cardiomegaly. Bones/joints: Unremarkable. IMPRESSION: No acute findings. Dictated and Authenticated by: Vincenzo Plunkett MD. Ordering:ELIECER Finley MD
[2023-09-05 03:20] LABS: D-Dimer 586 ng/mlFEU (<500)
[2023-09-05] MEDS: Omnipaque 350 MG/ML 100 ML BTL IJ (03:45)
--- NOTE | 2023-09-05 03:45 | RT.EKG_ITS ---
APPROVED REPORT Exam: Resting ECG Reason for Exam: shortness of breath Patient Location: E HR:73 bpm ECG Measurements Heart Rate 73 AXIS NH 182 P 34 QRSd 88 QRS -11 QT 425 T -4 QTc 468 Conclusion Sinus rhythm...V-rate 60- 99 Low voltage, precordial leads...precordial leads <1.0mV Appropriate intervals No ST segment or T wave abnormalities to suggest occlusive DC
[2023-09-05] MEDS: Normal Saline Flush 10 ML SYR IVP (03:46)
[2023-09-05] MEDS: Normal Saline - Diluent 50 ML VIAL IJ (03:46)
--- NOTE | 2023-09-05 04:03 | DI.VRAD_ITS ---
PROCEDURE INFORMATION: Exam: CTA Chest With Contrast Exam date and time: 09/05/2023 3:30 AM Age: 28 years old Clinical indication: Shortness of breath; Additional info: SOB x 2 days, pos d-dimer, tachycardiac TECHNIQUE: Imaging protocol: Computed tomographic angiography of the chest with contrast. Exam focused on the arteries. 3D rendering (Not supervised by radiologist): MIP and/or 3D reconstructed images were created by the technologist. Contrast material: OMNI 350; Contrast volume: 100 ml; Contrast route: INTRAVENOUS (IV); COMPARISON: CR XR CHEST 2V PA LATERAL 09/05/2023 2:50 AM FINDINGS: Pulmonary arteries: Normal. No pulmonary emboli. Aorta: Unremarkable. No aortic aneurysm. No aortic dissection. Lungs: Unremarkable. No consolidation. No masses. Pleural spaces: Unremarkable. No pneumothorax. No pleural effusion. Heart: Unremarkable. No pericardial effusion. Esophagus: Unremarkable. Mediastinal space: Normal residual thymic tissue. Lymph nodes: Unremarkable. No enlarged lymph nodes. Bones/joints: Unremarkable. No acute fracture. Soft tissues: Midline upper anterior chest wall sebaceous cyst. IMPRESSION: No acute findings. Dictated and Authenticated by: Vincenzo Plunkett MD. Ordering:ELIECER Finley MD
== END 2023-09-05 04:10 | disposition home or self-care (01) ==
PROVIDERS: Emergency Provider Student in an Organized Health Care Education/Training Program; PCP Nurse Practitioner Family
DX: R06.02 Shortness of breath (principal); R42 Dizziness and giddiness
CPT/HCPCS: 71275; 80053; 82805; 93005; 99285; 71046; 83735; 84484; 84702; 85025; 85379; 93010; 99283; J3490

== ENCOUNTER 2023-09-09 12:45 | Outpatient (REF) | payer MEDICAID, SELFPAY ==
[2023-09-09 16:05] LABS: Calculated LDL 88 mg/dL (<100); Cholesterol 141 mg/dL (<200); Ferritin 32 ng/mL (8-252); HDL Cholesterol 48 mg/dL (40-60); Triglyceride 28 mg/dL (<150)
== END 2023-09-09 12:46 | disposition home or self-care (01) ==
LOC: NCHCN 12:45
PROVIDERS: PCP Nurse Practitioner Family; Visit Provider Nurse Practitioner Family
DX: D50.9 Iron deficiency anemia, unspecified (principal)
CPT/HCPCS: 80061; 82728; 83540; 83550

== ENCOUNTER 2023-09-30 13:05 | Outpatient (REF) | payer MEDICAID, SELFPAY ==
[2023-09-30 15:58] LABS: Iron 66 ug/dL (50-170); Total Iron Binding Capacity 356 ug/dL (250-450); Transferrin Sat 19 % (15-50)
== END 2023-09-30 13:06 | disposition home or self-care (01) ==
LOC: NCHCN 13:05
PROVIDERS: PCP Nurse Practitioner Family; Referring Provider Nurse Practitioner Family; Visit Provider Nurse Practitioner Family
DX: D50.9 Iron deficiency anemia, unspecified (principal)
CPT/HCPCS: 83540; 83550

== ENCOUNTER 2023-10-13 10:24 | Outpatient (CLI) | payer MEDICAID, SELFPAY ==
[2023-10-13 18:03] LABS: Hemoglobin A1C 5.8 % (<5.7)
[2023-10-14 20:57] LABS: HIV-1/2 Ag & Ab Screen Negative (Negative)
[2023-10-14 21:26] LABS: Hepatitis C Ab w Rflx HCV PCR Negative (Negative)
[2023-10-16 14:49] LABS: Syphilis Serology (RPR) Negative (Negative)
== END 2023-10-13 10:25 | disposition home or self-care (01) ==
LOC: LBO 10-20 10:25
PROVIDERS: PCP Nurse Practitioner Family; Visit Provider Nurse Practitioner Family
DX: Z11.59 Encounter for screening for other viral diseases (principal); R06.00 Dyspnea, unspecified; R73.03 Prediabetes
CPT/HCPCS: 36415; 86803; 87389; 83036; 86592

== ENCOUNTER 2023-10-13 18:11 | Outpatient (REF) | payer MEDICAID, SELFPAY ==
[2023-10-15 15:03] LABS: Chlamydia Result Negative (Negative); GC Result Negative (Negative)
== END 2023-10-13 18:12 | disposition home or self-care (01) ==
LOC: NCHCN 18:11
PROVIDERS: PCP Nurse Practitioner Family; Visit Provider Nurse Practitioner Family
DX: Z11.59 Encounter for screening for other viral diseases (principal)
CPT/HCPCS: 87491; 87591

== ENCOUNTER 2023-11-17 19:20 | Emergency (ER) | payer MEDICAID, SELFPAY ==
[2023-11-17] VITALS (103 sets, daily range): BP systolic 129–137; BP diastolic 63–86; PULSE 62–85; RESP 13–32; TEMP 36.6–36.8; O2SAT 96–100
--- NOTE | 2023-11-17 19:30 | RT.EKG_ITS ---
APPROVED REPORT Exam: Resting ECG Reason for Exam: dizziness Patient Location: E HR:69 bpm ECG Measurements Heart Rate 69 AXIS ME 167 P 26 QRSd 80 QRS -11 QT 408 T 2 QTc 437 Conclusion Sinus arrhythmia...V-rate 55- 82, variation>10% Low voltage, precordial leads...precordial leads <1.0mV Narrow complex normal sinus rhythm at a rate of 69. Left axis deviation no signs of LVH based on vol tage criteria. ME and QTc within normal limits. T wave flattening precordial leads. T wave inversi on in lead III and T wave flattening in aVF. Low voltage. Compared to prior dated earlier this year no acute changes. No acute injury pattern.
--- NOTE | 2023-11-17 19:41 | ED.GENADUL_ITS ---
Discharge Plan Discharge Details Chief Complaint: SOB Primary Care Provider: SONNY ROBERTS ED Provider: Ti Eng Home Meds and New Rx's Prescriptions: No Action cetirizine [24Hour Allergy] 10 mg tablet 10 mg PO DAILY PRN ibuprofen 200 mg Tablet 200 mg PO Q6H PRN HPI General Date/Time Provider Initiated Documentation: 11/17/23 19:25 . HPI Narrative: 28 year-old female presents to ED today by POV/ambulating with a chief complaint of dizzy spells, palpitations, and a small amount of chest pain tonight about 30 minutes prior to arrival with spontaneous resolution within minutes, with onset noted over the past few months. Quality described as lightheadedness, palpitations, states she was seen prior for this, and has an SpO2 monitor and notices no abnormal SpO2 or pulse readings during the episodes, equates episodes with eating, sometimes driving, as well as laying in bed, no radiation to severe chest pain, indigestion, hemoptysis, vertigo, numbness/tingling, visual changes. Severity is described as moderate. Palliating factors include nothing specific- she was recommended to discontinue montelukast by [facility] for this dizziness. Provoking factors include nothing specific. Events leading up to the incident/Associated Symptoms: Patient has not had cardiology visit. Patient not anticoagulated. Related Data Home Medications Medication Instructions Recorded Confirmed ibuprofen 200 mg tablet 200 mg PO Q6H PRN 12/08/21 11/17/23 cetirizine 10 mg tablet (24Hour 10 mg PO DAILY PRN 11/17/23 11/17/23 Allergy) Allergies Allergy/AdvReac Type Severity Reaction Status Date / Time cat dander Allergy Dizziness/L Verified 11/17/23 19:32 ighthead General Stated Complaint: SOB GREG: 3 Review of Systems All systems reviewed & are unremarkable except as noted in HPI and below Exam Narrative Exam Narrative: GENERAL APPEARANCE: Well-nourished, non-toxic, awake and alert, atraumatic, no acute distress. SKIN: Warm, pink, dry, intact, without rashes/lesions/ulcerations. HEAD: Normocephalic, atraumatic, normal hair distribution for gender/age. EYES: Pupils PERRLA, EOMs intact without nystagmus, normal conjunctiva, no exudates on lids/lashes. ENT: Nares patent, no circumoral cyanosis, no facial swelling NECK: Supple, trachea midline, painless cervical ROM. LUNGS/CHEST: Lungs CTA bilaterally- no rhonchi/rales/wheezes diffusely, non- labored respirations, normal A/P diameter, symmetrical expansion, no chest wall deformity HEART (CV/PV): Regular rate and rhythm without murmur, no peripheral edema, no JVD. ABDOMEN: Soft, non-distended, no guarding, no tenderness. MSK: Normal ROM, no swelling/deformity to bilateral UEs or LEs, moving all extremities without weakness, no cyanosis, spine midline without tenderness, normal curvature. NEURO: Mental Status AAOx4 - alert to person, place, time, events No facial droop, no forehead involvement. Motor: No focal weakness - strength 5/5 in bilateral UEs and LEs, proximal and distal, symmetric. Sensory: sensation intact to light touch globally. Gait normal: patient ambulated without ataxia into ED room. PSYCH: euthymic, cooperative, pleasant, appropriate speech Course Vital Signs Vital signs: Vital Signs Temperature 36.8 C 11/17/23 19:22 Pulse 85 11/17/23 19:22 Respiratory Rate 22 11/17/23 19:22 Blood Pressure 136/83 11/17/23 19:22 Pulse Oximetry 98 11/17/23 19:22 Temperature 36.8 C 11/17/23 19:22 Temperature Source Oral 11/17/23 19:22 Pulse 85 11/17/23 19:22 Respiratory Rate 22 11/17/23 19:22 Blood Pressure 136/83 11/17/23 19:22 Blood Pressure Position Supine 11/17/23 19:22 Pulse Oximetry 98 11/17/23 19:22 Oxygen Delivery Method Room Air 11/17/23 19:22 Oxygen Flow Rate 0 11/17/23 19:22 Pain Level 1 11/17/23 19:22 Medical Decision Making This dictation utilizes [id number] dictation software and may contain unedited grammatical errors. 28 y/o F presents to ED today with a chief complaint of dizzy spells, some palpitations, and near synope- worse around eating, around bedtime, sometimes driving- had negative workup in September, endorses very mild chest pain 30 minutes prior to arrival tonight that resolved quickly without intervention. Patient denies vertiginous symptoms with visual changes, denies unsteady gait, has checked her heart rate and SpO2 during these episodes with a pulse ox and found no abnormality, she does have significant allergies and was on montelukast in [facility] at asked her to discontinue this due to dizziness. Patients' medical history: Allergies, possible anxiety. Family and social history: noncontributory. Pertinent exam findings / vital signs include benign cardiopulmonary exam, neuro intact, benign abdomen, nontoxic vitals. Differential / pathologies of concern include palpitations, arrhythmia, ACS, pulmonary embolism, unlikely cerebellar cause, anxiety. Diagnostic studies of: -CBC, CMP, Trop with delta Trop, BNP, magnesium, TSH, EKG, repeat EKG with rhythm strip. -CBC benign -CMP benign -D-dimer negative -BNP WNL -Initial trop negative, delta pending at sign-out -EKG shows sinus arrhythymia without signs of block- no widened QRS, slightly prolonged MN intervals, rhythm strip shows no dropped beats, consistent with prior EKGs Interventions of: -None, the patient did become symptomatic and have a brief episode of her heart rate dropping from the 70s down to the 50s but again no dropped beats were seen and no significant arrhythmia beyond sinus bradycardia or sinus arrhythmia was seen at this time. Findings not consistent with ACS, PE, vertiginous or cerebellar syndrome, the patient possibly is having arrhythmia and may need ZIO heart monitor, I counseled her on these findings and referred her to be seen by cardiology. Disposition of Dizziness of Unknown Cause, Palpitations. Patient verbalized understanding of the plan and return to ED criteria and engaged in shared decision making. Medical Records Medical records reviewed: Yes I reviewed the patient's medical records. Imaging Data Radiologic Study: Attestation: I personally reviewed and interpreted this imaging study as follows: Imaging: X-Ray My impression: No acute abnormality, no widened mediastinum, no PNA Lab Data Lab results reviewed: Yes I reviewed the patient's lab results. Labs: Laboratory Tests Range/Units 11/17/23 11/17/23 20:05 20:22 WBC (4.4-10.8) 10^3/uL 5.86 RBC (3.93-5.22) 10^6/uL 4.81 Hgb (11.2-15.7) g/dL 12.7 Hct (36.0-46.0) % 40.3 MCV (80-95) fL 84 MCH (27.0-33.0) pg 26.4 L MCHC (32.0-36.0) % 31.5 L RDW (11.7-14.6) % 15.0 H Plt Count (130-400) 10^3/uL 294 MPV (8.0-11.0) fL 10.8 Immature Gran % 0.2 Neutrophils % 61.7 Lymphocytes % 31.1 Monocytes % 4.6 Eosinophils % 1.7 Basophils % 0.7 Nucleated RBC % (0.0-0.3) % 0.0 Absolute Neutrophils (1.2-6.7) 10^3/uL 3.62 Absolute Lymphocytes (1.2-3.4) 10^3/uL 1.82 Absolute Monocytes (0.1-0.8) 10^3/uL 0.27 Absolute Eosinophils (0.0-0.7) 10^3/uL 0.10 Absolute Basophils (0.0-0.2) 10^3/uL 0.04 D-Dimer Cancelled 444 VBG Lactate (0.6-1.4) mmol/L 1.0 Sodium (136-145) mmol/L 140 Potassium (3.5-5.1) mmol/L 3.6 Chloride (98-107) mmol/L 103 Carbon Dioxide (21.0-32.0) mmol/L 28.4 Anion Gap (3-11) mmol/L 8.6 BUN (7-18) mg/dL 9 Creatinine (0.55-1.02) mg/dL 0.8 Est GFR (CKD-EPI 2020) (mL/min/1.73m2) 101.59 Glucose (74-106) mg/dL 100 Calcium (8.5-10.1) mg/dL 9.0 Magnesium (1.8-2.4) mg/dL 2.0 Total Bilirubin (0.2-1.0) mg/dL 0.4 AST (15-37) U/L 18 ALT (14-59) U/L 24 Alkaline Phosphatase (46-116) U/L 105 Troponin I (< or =60) ng/L < 50 C-Reactive Protein (<or=0.5) mg/dL 0.53 H NT-Pro-B Natriuret Pep (<300) pg/mL 28 Total Protein (6.4-8.2) g/dL 8.6 H Albumin (3.4-5.0) g/dL 4.1 TSH (0.36-3.74) uIU/mL 3.62 Urine Color (Yellow) Yellow Urine Clarity (Clear) Cloudy Urine pH (5-8) 6.0 Ur Specific Lohn (1.005-1.025) 1.015 Urine Protein (Neg-Trace) mg/dL Negative Urine Ketones (Negative) mg/dL Negative Urine Blood (Negative) Negative Urine Nitrite (Negative) Negative Urine Bilirubin (Negative) Negative Urine Urobilinogen (Up to 0.2) mg/dL 0.2 Ur Leukocyte Esterase (Negative) Negative Urine Glucose (Negative) mg/dL Negative Quality:SDOH Health Related Social Needs: No Data to Display PFSH All Active Problems (Updated 10/06/23 @ 00:07 by ANTONY MEJIA) Fibroid uterus (Acute) Uterine anomaly (Acute) Family History Other Cancer Diabetes Fibroid uterus Social History Smoking/Tobacco Use Status: Never Second Hand Exposure: Yes Smoking risk assessment performed?: Yes Alcohol Intake: current Alcohol Intake frequency: other Details: once a month Drug use: Occasionally Substance use type: marijuana Details: Edibles Household members: none Number of Children: 0 Seatbelt use: always Do you feel safe at home: Yes Do you feel safe in your relationship?: Yes History History 0 Para Hx # Term Pregnancies Multiple births Hx # Pregnancies Ectopic pregnancies AB induced Hx Number of Living Children AB spontaneous Sign Out Sign Out Data: Sign Out Comment: Pending rpt troponin, dizzy spells- seen for same in September, negative workup Palpitations without block on EKG or rhythm strip, initial trop negative, D-dimer negative, neuro intact Placed on referral list for [facility] Cardiology for Sheree and eval late this week/early next week. Rpt trop pending at time of sign out, radiology read of CXR pending- no abnormality by provider read Last updated by Ti Eng PA at 11/17/23 22:32
[2023-11-17 20:11] LABS: Abs Immature Grans 0.01 10^3/uL (0.0-0.06); Absolute Basophil Count 0.04 10^3/uL (0.0-0.2); Absolute Lymphocyte Count 1.82 10^3/uL (1.2-3.4); Absolute Monocyte Count 0.27 10^3/uL (0.1-0.8); Absolute Neutrophil Count 3.62 10^3/uL (1.2-6.7); Basophils % 0.7; Eosinophils % 1.7; HCT 40.3 % (36.0-46.0); HGB 12.7 g/dL (11.2-15.7); Immature Grans % 0.2; Lymphocytes % 31.1; MCH 26.4 pg (27.0-33.0); MCHC 31.5 % (32.0-36.0); MCV 84 fL (80-95); MPV 10.8 fL (8.0-11.0); Monocytes % 4.6; Neutrophils % 61.7; Platelet Count 294 10^3/uL (130-400); RBC 4.81 10^6/uL (3.93-5.22); WBC 5.86 10^3/uL (4.4-10.8)
[2023-11-17 20:12] LABS: Bilirubin Negative (Negative); Blood Negative (Negative); Clarity Cloudy (Clear); Glucose Negative (Negative); Ketones Negative (Negative); Leukocyte Esterase Negative (Negative); Nitrite Negative (Negative); Specific Gravity 1.015 (1.005-1.025); Urobilinogen 0.2 mg/dL (Up to 0.2)
--- NOTE | 2023-11-17 20:30 | RT.EKG_ITS ---
APPROVED REPORT Exam: Resting ECG Reason for Exam: dizziness Patient Location: E HR:58 bpm ECG Measurements Heart Rate 58 AXIS SC 160 P 6 QRSd 82 QRS -3 QT 433 T -5 QTc 421 Conclusion Sinus bradycardia...rate< 60 Atrial premature complex...SV complex w/ short R-R interval Low voltage, precordial leads...precordial leads <1.0mV
[2023-11-17 20:36] LABS: ALT 24 U/L (14-59); AST 18 U/L (15-37); Albumin 4.1 g/dL (3.4-5.0); Alkaline Phosphatase 105 U/L (46-116); Anion Gap 8.6 mmol/L (3-11); BUN 9 mg/dL (7-18); Bilirubin, Total 0.4 mg/dL (0.2-1.0); C-Reactive Protein 0.53 mg/dL (<or=0.5); CO2 28.4 mmol/L (21.0-32.0); CREATININE 0.8 mg/dL (0.55-1.02); Chloride 103 mmol/L (98-107); Estimated GFR 101.59 (mL/min/1.73m2); Glucose 100 mg/dL (74-106); NT-proBNP 28 pg/mL (<300); Potassium 3.6 mmol/L (3.5-5.1); Sodium 140 mmol/L (136-145); TSH (W/Ref FT4) 3.62 uIU/mL (0.36-3.74); Total Protein 8.6 g/dL (6.4-8.2)
[2023-11-17 20:37] LABS: Troponin I < 50 ng/L (< or =60)
[2023-11-17 20:56] LABS: D-Dimer 444 ng/mlFEU (<500)
--- NOTE | 2023-11-17 22:00 | DI.RAD_ITS ---
Exam(s) XR CHEST 2V PA LATERAL EXAM: XR CHEST 2V PA LATERAL CLINICAL HISTORY: dizziness TECHNIQUE: 2D digital imaging was performed. Two views. COMPARISON: CR,XR XR CHEST 2V PA LATERAL from 09/05/2023 FINDINGS: HEART: Normal size. Aorta: Not dilated. PULMONARY VASCULATURE: Normal. LUNGS: Clear. PLEURAL SPACE: No pleural effusion or pneumothorax. BONE:Unremarkable for age. Soft tissues: Unremarkable. IMPRESSION: No acute abnormality. DATA REPOSITORY: RADIATION DOSE DELIVERED:
--- NOTE | 2023-11-17 22:12 | NUR.NOTE ---
Referral faxed to [facility] Cardiology to f/u later this week or early next week for dizziness, palpitations to determine if zio patch is appropriate.Nursing Note:
[2023-11-17 23:09] LABS: Troponin I < 50 ng/L (< or =60)
--- NOTE | 2023-11-17 23:18 | W.EDPROG ---
Date of service: 11/17/23 Time of Service: 22:15 Medical Decision Making This patient was signed out to me. Please see previous notes for H&P and initial eval. In brief, 28yo F presenting with shortness of breath and lightheadedness. EKG/CXR/laboratory workup reassuring. Plan for repeat troponin; if negative plan for discharge home with outpatietn cardiology followup. Delta troponin negative. On reassessment remains well appearing with reassuring vital signs. Discharged home; discharge instructions and return precautions were reviewed with patient who verbalized understanding. All questions were answered and she is in full agreement with the plan. Quality:[facility] Health Related Social Needs: No Data to Display Sign Out Sign Out Data: Sign Out Comment: Pending rpt troponin, dizzy spells- seen for same in September, negative workup Palpitations without block on EKG or rhythm strip, initial trop negative, D-dimer negative, neuro intact Placed on referral list for [facility] Cardiology for Sheree and eval late this week/early next week. Rpt trop pending at time of sign out, radiology read of CXR pending- no abnormality by provider read Last updated by Ti Eng PA at 11/17/23 22:32 Discharge Plan Disposition Patient Disposition: Home Condition: Good Discharge Details Clinical Impression: Shortness of breath, Pre-syncope Primary Care Provider: SONNY ROBERTS ED Provider: Malia Padgett Home Meds and New Rx's Prescriptions: Continued cetirizine [24Hour Allergy] 10 mg tablet 10 mg PO DAILY PRN ibuprofen 200 mg Tablet 200 mg PO Q6H PRN Discharge Instructions Instructions: Dyspnea (ED), Near Syncope (ED) Additional Instructions: Follow up with cardiology- they will call you to schedule an appointment. Return to the emergency department for new or worsening symptoms. Referrals: SONNY ROBERTS, HEALTH OCCUPATIONS INSTRUCTOR [Primary Care Provider] -
--- NOTE | 2023-11-17 23:22 | DI.VRAD_ITS ---
PROCEDURE INFORMATION: Exam: XR Chest Exam date and time: 11/17/2023 10:25 PM Age: 28 years old Clinical indication: Shortness of breath TECHNIQUE: Imaging protocol: Radiologic exam of the chest. Views: 2 views. COMPARISON: CT CHEST PE CTA 09/05/2023 3:30 AM FINDINGS: Lungs: Unremarkable. No consolidation. Pleural spaces: Unremarkable. No pleural effusion. No pneumothorax. Heart/Mediastinum: Unremarkable. No cardiomegaly. Bones/joints: Unremarkable. IMPRESSION: No acute findings. Dictated and Authenticated by: Rahul Main MD. Ordering:NORMA Luke MD
== END 2023-11-17 23:32 | disposition home or self-care (01) ==
PROVIDERS: Physician Assistant; Emergency Provider Student in an Organized Health Care Education/Training Program; PCP Nurse Practitioner Family
DX: R06.02 Shortness of breath (principal); R00.2 Palpitations; R55 Syncope and collapse
CPT/HCPCS: 00123; 80053; 93005; 99285; 71046; 81003; 83605; 83735; 83880; 84443; 84484; 85025; 85379; 86140; 93010

== ENCOUNTER 2023-11-21 16:41 | Emergency (ER) | payer MEDICAID, SELFPAY ==
[2023-11-21] VITALS (20 sets, daily range): BP systolic 87–158; BP diastolic 24–96; PULSE 52–92; RESP 14–23; TEMP 37–37.2; O2SAT 95–98
--- NOTE | 2023-11-21 16:45 | RT.EKG_ITS ---
APPROVED REPORT Exam: Resting ECG Reason for Exam: Dizziness; near syncope Patient Location: E HR:76 bpm ECG Measurements Heart Rate 76 AXIS NH 153 P 42 QRSd 89 QRS -6 QT 459 T -5 QTc 518 Conclusion Sinus arrhythmia 76 long QTC 518 no stemi
[2023-11-21 17:40] LABS: Abs Immature Grans 0.02 10^3/uL (0.0-0.06); Absolute Basophil Count 0.04 10^3/uL (0.0-0.2); Absolute Eosinophil Count 0.05 10^3/uL (0.0-0.7); Absolute Lymphocyte Count 1.32 10^3/uL (1.2-3.4); Absolute Monocyte Count 0.27 10^3/uL (0.1-0.8); Absolute Neutrophil Count 3.19 10^3/uL (1.2-6.7); Basophils % 0.8; HCT 40.1 % (36.0-46.0); HGB 12.6 g/dL (11.2-15.7); Immature Grans % 0.4; MCH 26.6 pg (27.0-33.0); MCHC 31.4 % (32.0-36.0); MCV 85 fL (80-95); MPV 11.2 fL (8.0-11.0); Monocytes % 5.5; Neutrophils % 65.3; Platelet Count 263 10^3/uL (130-400); RBC 4.73 10^6/uL (3.93-5.22); RDW 14.8 % (11.7-14.6); RDW-SD 45.4 fL; WBC 4.89 10^3/uL (4.4-10.8)
[2023-11-21 18:12] LABS: ALT 20 U/L (14-59); AST 16 U/L (15-37); Alkaline Phosphatase 104 U/L (46-116); Anion Gap 10.7 mmol/L (3-11); BUN 10 mg/dL (7-18); Bilirubin, Total 0.8 mg/dL (0.2-1.0); CO2 26.3 mmol/L (21.0-32.0); CREATININE 0.8 mg/dL (0.55-1.02); Calcium 8.9 mg/dL (8.5-10.1); Chloride 104 mmol/L (98-107); Creatine Kinase 109 U/L (26-192); Estimated GFR 101.59 (mL/min/1.73m2); Glucose 94 mg/dL (74-106); Potassium 3.5 mmol/L (3.5-5.1); Sodium 141 mmol/L (136-145); TSH 1.32 uIU/Ml (0.36-3.74); Total Protein 8.2 g/dL (6.4-8.2)
[2023-11-21] MEDS: ALPRAZolam 0.25 MG TAB 2 MG PO (18:53)
--- NOTE | 2023-11-21 19:21 | ED.GENADUL_ITS ---
Discharge Plan Disposition Patient Disposition: Home Condition: Stable Discharge Details Clinical Impression: Heart palpitations, Light-headed, Pre-syncope Primary Care Provider: SONNY ROBERTS ED Provider: Asim Martins Home Meds and New Rx's Prescriptions: No Action cetirizine [24Hour Allergy] 10 mg tablet 10 mg PO DAILY PRN ibuprofen 200 mg Tablet 200 mg PO Q6H PRN Discharge Instructions Additional Instructions: keep your log of symptoms for your PCP you should be able to get your holter monitor next week, if holter results are abnormal they will arrange cardiology follow up try xanax with new symptoms to see if this helps HPI General Date/Time Provider Initiated Documentation: 11/21/23 16:52 . Limitations to Documentation: no limitations . Information obtained by: patient and old records reviewed . HPI Narrative: 28-year-old female with out significant past medical history presents for evaluation of recurrent shortness of breath and dizziness. She reports that symptoms have been ongoing for about the last 2 months. She reports that she has dizziness and some lightheadedness, some questionable palpitations. This occurs when she is eating, driving or during sleeping. She reports that her last episode was this morning after eating breakfast. She states that she was monitoring her heart rate using a finger pulse oximeter while eating. She noted that her heart rate went from 70 and started to increase to 115. She states that she just started feeling bad. She states that she felt bad when she woke up, but then after eating and with her heart rate elevating, she just felt worse. She states that the symptoms have happened several times recently. She has been evaluated a few times in the emergency department and at urgent care and she has a follow-up appointment with her primary care doctor. An outpatient Holter monitor was ordered, but she has not been able to start this. Related Data Home Medications Medication Instructions Recorded Confirmed ibuprofen 200 mg tablet 200 mg PO Q6H PRN 12/08/21 11/21/23 cetirizine 10 mg tablet (24Hour 10 mg PO DAILY PRN 11/17/23 11/21/23 Allergy) Allergies Allergy/AdvReac Type Severity Reaction Status Date / Time cat dander Allergy Dizziness/L Verified 11/21/23 16:49 ighthead General Stated Complaint: RespSymp GREG: 3 Exam Narrative Exam Narrative: Review of Systems: All systems reviewed & are unremarkable except as noted in HPI and below Well-developed, crying NCAT PERRL, normal conjunctiva RRR, no murmur Unlabored respiratory effort, clear bilaterally Nondistended abdomen Extremities w/o deformity, no cyanosis, no edema No rashes or lesions. no focal neurologic deficits Very nervous, anxious, tearful Course Vital Signs Vital signs: Vital Signs Temperature 37.2 C 11/21/23 16:44 Pulse 90 11/21/23 16:44 Respiratory Rate 18 11/21/23 16:44 Blood Pressure 158/72 H 11/21/23 16:44 Pulse Oximetry 95 11/21/23 16:44 Temperature 37.0 C 11/21/23 18:57 Temperature Source Oral 11/21/23 17:27 Pulse 72 11/21/23 18:57 Pulse 71 11/21/23 18:10 Respiratory Rate 23 11/21/23 18:57 Respiratory Effort Normal, Non-Labored 11/21/23 17:29 Respiratory Depth Normal 11/21/23 17:29 Respiratory Pattern Normal 11/21/23 17:29 Blood Pressure 123/73 11/21/23 18:57 Blood Pressure Mean 79 11/21/23 17:50 Blood Pressure Position Sitting 11/21/23 17:27 Pulse Oximetry 98 11/21/23 18:57 Oxygen Delivery Method Room Air 11/21/23 17:27 Oxygen Flow Rate 0 11/21/23 17:27 Pain Level 0 11/21/23 17:27 Lab/Test Results Lab/Test Results: Laboratory Tests Range/Units 11/21/23 17:23 WBC (4.4-10.8) 10^3/uL 4.89 RBC (3.93-5.22) 10^6/uL 4.73 Hgb (11.2-15.7) g/dL 12.6 Hct (36.0-46.0) % 40.1 MCV (80-95) fL 85 MCH (27.0-33.0) pg 26.6 L MCHC (32.0-36.0) % 31.4 L RDW (11.7-14.6) % 14.8 H Plt Count (130-400) 10^3/uL 263 MPV (8.0-11.0) fL 11.2 H Immature Gran % 0.4 Neutrophils % 65.3 Lymphocytes % 27.0 Monocytes % 5.5 Eosinophils % 1.0 Basophils % 0.8 Nucleated RBC % (0.0-0.3) % 0.0 Absolute Neutrophils (1.2-6.7) 10^3/uL 3.19 Absolute Lymphocytes (1.2-3.4) 10^3/uL 1.32 Absolute Monocytes (0.1-0.8) 10^3/uL 0.27 Absolute Eosinophils (0.0-0.7) 10^3/uL 0.05 Absolute Basophils (0.0-0.2) 10^3/uL 0.04 Sodium (136-145) mmol/L 141 Potassium (3.5-5.1) mmol/L 3.5 Chloride (98-107) mmol/L 104 Carbon Dioxide (21.0-32.0) mmol/L 26.3 Anion Gap (3-11) mmol/L 10.7 BUN (7-18) mg/dL 10 Creatinine (0.55-1.02) mg/dL 0.8 Est GFR (CKD-EPI 2020) (mL/min/1.73m2) 101.59 Glucose (74-106) mg/dL 94 Calcium (8.5-10.1) mg/dL 8.9 Total Bilirubin (0.2-1.0) mg/dL 0.8 AST (15-37) U/L 16 ALT (14-59) U/L 20 Alkaline Phosphatase (46-116) U/L 104 Creatine Kinase (26-192) U/L 109 Total Protein (6.4-8.2) g/dL 8.2 Albumin (3.4-5.0) g/dL 4.0 TSH (0.36-3.74) uIU/Ml 1.32 Medical Decision Making Emergent evaluation of dizziness and palpitations. Patient has had repeated workup for similar episodes. Her EKG does not demonstrate any significant abnormalities. She does have a slightly long QTc. She is very tearful right now. There does not seem to be a significant precipitating factor of these episodes, and I have reviewed prior workup and nothing jumps out at me is significantly abnormal. Blood work was repeated today. Orthostatic vital signs are unremarkable. There is no significant abnormality on her blood work. We discussed with the patient that there may be some component of anxiety given the way she looked on my first evaluation. She also thinks that there may be some anxiety component and she would be open to trying some Xanax. She was prescribed 0.25 mg Xanax to try over the next few days with the symptoms. Just to see if this may be helpful for her. She has a primary care doctor appointment on Thursday. I advised that it is important for her to also do the Holter monitor to further evaluate the symptoms. Return precautions advised Medical Records Medical records reviewed: Yes I reviewed the patient's medical records. Lab Data Lab results reviewed: Yes I reviewed the patient's lab results. Quality:SDOH Health Related Social Needs: No Data to Display PFSH All Active Problems Light-headed (Acute) Heart palpitations (Acute) Pre-syncope (Acute) Shortness of breath (Acute) Fibroid uterus (Acute) Uterine anomaly (Acute) Family History Other Cancer Diabetes Fibroid uterus Social History Smoking/Tobacco Use Status: Never Second Hand Exposure: Yes Smoking risk assessment performed?: Yes Alcohol Intake: current Alcohol Intake frequency: other Details: once a month Drug use: Occasionally Substance use type: marijuana Details: Edibles Household members: none Number of Children: 0 Seatbelt use: always Do you feel safe at home: Yes Do you feel safe in your relationship?: Yes History History 0 Para Hx # Term Pregnancies Multiple births Hx # Pregnancies Ectopic pregnancies AB induced Hx Number of Living Children AB spontaneous PAWSS Have you Been Recently Intoxicated or Drunk Within the Last 30 days?: No Have you Ever Experienced Previous Episodes of Alcohol Withdrawal?: No Have you ever Experienced Withdrawal Seizures?: No Have you ever Experienced Delirium Tremens(DT)s?: No Have you ever undergone Alcohol Rehabilitation Treatment (i.e, inpt ot outpatient treatment programs)?: No Have you ever Experienced Blackouts?: No Have you ever Combined Alcohol with other Downers within the last 90 days?: No Have you ever Combined Alcohol with any other Substance of Abuse during the last 90 days?: No Positive Blood Alcohol level on Presentation? [PCS.BAL]: No Evidence of Increased Autonomic Activity (i.e. HR>120, tremor, sweating, agitation, nausea)?: No Result: 0
== END 2023-11-21 18:56 | disposition home or self-care (01) ==
PROVIDERS: Emergency Provider Emergency Medicine; PCP Nurse Practitioner Family
DX: R00.2 Palpitations (principal); R06.02 Shortness of breath; R42 Dizziness and giddiness
CPT/HCPCS: 36415; 80053; 82550; 93005; 99283; 84443; 85025; 93010

== ENCOUNTER 2023-11-26 13:36 | Outpatient (RCR) | payer MEDICAID, SELFPAY ==
--- NOTE | 2023-11-26 14:30 | HOLTER_ITS ---
APPROVED REPORT Conclusion This is a 48-hour Holter monitor Rhythm throughout is sinus with an average heart rate of 71. Minimum was 48, maximum 119 There were a total of 16 premature ventricular contractions There were 19 premature atrial contractions There was no atrial fibrillation, no SVT, no pauses greater than 3 seconds no high-grade AV block Symptoms were reported which had no correlation to any dysrhythmia
== END 2023-12-01 23:59 | disposition home or self-care (01) ==
LOC: CARDOPNVT 13:36
PROVIDERS: PCP Nurse Practitioner Family; Visit Provider Internal Medicine Cardiovascular Disease
DX: I49.3 Ventricular premature depolarization (principal)
CPT/HCPCS: 93225; 93226

== ENCOUNTER 2023-12-03 05:24 | Outpatient (CLI) | payer MEDICAID, SELFPAY ==
[2023-12-03] MEDS: Levalbuterol HFA 15 GM INH 4 PUFF IH (11:14)
[2023-12-03] MEDS: Inhaler, Assist Device 1 EACH MC (11:14)
--- NOTE | 2023-12-03 12:20 | W.PFT ---
Date of service: 12/03/23 Time of Service: 08:24 Pulmonary Function Test Result Indications: Dyspnea Interpretation Spirometry: There is no airflow limitation. No bronchodilator response. Lung Volumes: No lung volumes Diffusion Capacity: Normal diffusion Airway Pressure: Normal airways resistance Impression Normal pulmonary function testing Clinical Correlation therefore is recommended.
== END 2023-12-03 05:25 | disposition home or self-care (01) ==
LOC: RT 05:24
PROVIDERS: PCP Nurse Practitioner Family; Visit Provider Student in an Organized Health Care Education/Training Program
DX: R06.00 Dyspnea, unspecified (principal)
CPT/HCPCS: 94060; 94726; 94729

== ENCOUNTER 2024-06-10 00:11 | Emergency (ER) | payer MEDICAID, SELFPAY ==
[2024-06-10 00:15] VITALS: BP 144/77; PULSE 100; RESP 18; TEMP 36.7; O2SAT 95
--- NOTE | 2024-06-10 00:15 | DI.RAD_ITS ---
Exam(s) XR CHEST 2V PA LATERAL EXAM: XR CHEST 2V PA LATERAL CLINICAL HISTORY: cough, SOB TECHNIQUE: 2D digital imaging was performed of the chest. Two images were obtained. PA and lateral views were obtained. COMPARISON: CR,XR XR CHEST 2V PA LATERAL from 11/17/2023 FINDINGS: There is artifact on the PA view of the chest which may be due to technique. MEDIASTINUM: Normal. HEART: Normal. PULMONARY VASCULATURE: Normal. LUNGS: Clear. PLEURAL SPACE: No pleural effusion or pneumothorax. BONE:Within normal limits for the patient's age. OTHER FINDINGS:Normal. IMPRESSION: No acute pulmonary findings. DATA REPOSITORY: RADIATION DOSE DELIVERED:
--- NOTE | 2024-06-10 00:19 | W.ED.GENAD ---
Discharge Plan Disposition Patient Disposition: Home Condition: Good Discharge Details Clinical Impression: URI with cough and congestion, RAD (reactive airway disease) Primary Care Provider: SONNY ROBERTS ED Provider: Tereso Crosss and New Rx's Prescriptions: Continued fluticasone propionate [Allergy Relief (fluticasone)] 50 mcg/actuation spray,suspension 2 spray intranasal Q12H PRN Rx Instructions: administer into each nostril cetirizine [24Hour Allergy] 10 mg tablet 10 mg PO DAILY PRN ibuprofen 200 mg Tablet 200 mg PO Q6H PRN propranolol 40 mg tablet 40 mg PO PRN Changed albuterol sulfate 90 mcg/actuation aerosol powdr breath activated 2 inh inhalation Q6H PRN (Reason: cough/shortness of breath) Qty: 0 0RF Discharge Instructions Instructions: Upper Respiratory Infection ED Additional Instructions: You were seen in the ED for cough and shortness of breath. Your swab here is negative for COVID or flu. Your chest x-ray shows no evidence of pneumonia. This is likely viral in nature. You may use your albuterol every 4-6 hours for cough or shortness of breath as that does seem to be a bit of reactive airway. Pseudoephedrine will help with your nasal congestion and is [id number]. Rest and stay hydrated. Follow-up with primary care next week. Return to ED for worsening shortness of breath, persistent chest pain, neurologic change, other concerns. Referrals: SONNY ROBERTS, L[employer] TRUCK DRIVER [Primary Care Provider] - Discharge Data Discharge Date/Time-TO BE ENTERED AT DEPARTURE: 06/10/24 01:36 HPI General Mode of arrival: ambulatory. Date/Time Provider Initiated Documentation: 06/10/24 00:19. Limitations to Documentation: no limitations. Information obtained by: patient and RN notes reviewed. HPI Narrative: Patient presents to ED with complaint of cough and shortness of breath. Patient reports developing nasal congestion, cough, shortness of breath 2 to 3 days ago. Subjectively has felt like she had a fever but is never taken her temperature. Denies headache, earache, sore throat. Does complain of pain in her throat and chest when she does cough. Denies smoking. Denies a definitive diagnosis of asthma though she does have an inhaler to use as needed. She has not tried it since becoming ill. Is having difficulty sleeping tonight because of cough and shortness of breath. Denies any abdominal pain or GI symptoms. Related Data Home Medications ?Medication ?Instructions ?Recorded ?Confirmed ibuprofen 200 mg tablet 200 mg PO Q6H PRN 12/08/21 06/10/24 cetirizine 10 mg tablet (24Hour 10 mg PO DAILY PRN 11/17/23 06/10/24 Allergy) fluticasone propionate 50 2 spray intranasal Q12H PRN 11/24/23 06/10/24 mcg/actuation nasal spray,suspension (Allergy Relief (fluticasone)) albuterol sulfate 90 mcg/actuation 2 inh inhalation Q6H PRN 06/10/24 06/10/24 breath activated powder inhaler cough/shortness of breath #0 ea propranolol 40 mg tablet 40 mg PO PRN 06/10/24 06/10/24 Previous Rx's ?Medication ?Instructions ?Recorded albuterol sulfate 90 mcg/actuation 2 inh inhalation Q6H PRN 06/10/24 breath activated powder inhaler cough/shortness of breath #0 ea Allergies Allergy/AdvReac Type Severity Reaction Status Date / Time cat dander Allergy Dizziness/L Verified 06/10/24 00:18 ighthead General Stated Complaint: RespSymp GREG: 3 Review of Systems Narrative: Per HPI Exam Narrative Exam Narrative: Const: Obese female in NAD. VS per triage. HEENT: NC/AT. Normal facial exam. TMs clear bilaterally. Oropharynx clear with no erythema or exudate. Neck: Supple. Trachea midline. Lungs: Normal respiratory effort. Lungs are clear. Cor: RRR without murmur. Good radial pulses. Neuro: A+O x 3. Normal speech, mentation, gait. Cranial nerves II - XII grossly intact. No gross motor or sensory deficit. Course Vital Signs Vital signs: Vital Signs Temperature 98.0 F 06/10/24 00:15 Pulse 100 H 06/10/24 00:15 Respiratory Rate 18 06/10/24 00:15 Blood Pressure 144/77 H 06/10/24 00:15 Pulse Oximetry 95 06/10/24 00:15 Temperature 98.0 F 06/10/24 00:15 Pulse 100 H 06/10/24 00:15 Respiratory Rate 18 06/10/24 00:15 Respiratory Effort Short of Breath 06/10/24 00:17 Blood Pressure 144/77 H 06/10/24 00:15 Blood Pressure Position Sitting 06/10/24 00:15 Pulse Oximetry 95 06/10/24 00:15 Oxygen Delivery Method Room Air 06/10/24 00:15 Oxygen Flow Rate 0 06/10/24 00:15 Medical Decision Making Medical Records Medical records narrative: Patient presents to ED with URI type symptoms and shortness of breath. Saturations are normal. Lungs are clear. Cough seems bronchitic in nature. She also has a lot of nasal congestion. Has not used her albuterol inhaler. Given a single albuterol neb here. [id number] COVID/flu testing obtained. Chest x-ray obtained. Patient's breathing and cough improved with albuterol. COVID and flu negative. Chest x-ray negative per my read as well as preliminary radiology read. Patient instructed to use her albuterol inhaler every 4-6 hours as needed while ill. Also suggested pseudoephedrine for her nasal congestion otherwise supportive care for URI. Follow-up with primary care next week. Return precautions provided. Imaging Data Radiologic Study: Attestation: I personally reviewed and interpreted this imaging study as follows: Imaging: X-Ray My impression: Unremarkable chest x-ray PFSH All Active Problems Dysphagia (Acute) RAD (reactive airway disease) (Acute) URI with cough and congestion (Acute) Uterine anomaly (Acute) Medical History Pre-diabetes Adjustment disorder Iron deficiency anemia Fibroid uterus Family History Other Cancer Diabetes Fibroid uterus Social History Smoking/Tobacco Use Status: Never Second Hand Exposure: Yes Smoking risk assessment performed?: Yes Alcohol Intake: current Alcohol Intake frequency: other Details: once a month Drug use: Occasionally Substance use type: marijuana Details: Edibles Household members: none Number of Children: 0 Seatbelt use: always Do you feel safe at home: Yes Do you feel safe in your relationship?: Yes History History 0 Para Hx # Term Pregnancies Multiple births Hx # Pregnancies Ectopic pregnancies AB induced Hx Number of Living Children AB spontaneous
[2024-06-10] MEDS: Albuterol 2.5 MG/3 ML INH SOLN VIAL UPD (00:34)
--- NOTE | 2024-06-10 01:10 | DI.VRAD_ITS ---
PROCEDURE INFORMATION: Exam: XR Chest Exam date and time: 06/10/2024 1:01 AM Age: 28 years old Clinical indication: Cough and shortness of breath; Additional info: Cough, SOB TECHNIQUE: Imaging protocol: Radiologic exam of the chest. Views: 2 views. COMPARISON: CR XR CHEST 2V PA LATERAL 11/17/2023 10:25 PM FINDINGS: Limitations: The frontal examination is limited by technical artifact. Lungs: No pulmonary consolidation is seen. Pleural spaces: No pleural effusion or pneumothorax is demonstrated. Heart/Mediastinum: The heart appears normal in size. Bones/joints: The visualized bony structures appear grossly intact, as seen. IMPRESSION: No active disease is seen in the chest. Dictated and Authenticated by: Marc Sow MD. Ordering:MARIN Rider MD
[2024-06-10 01:34] VITALS: BP 139/78; PULSE 88; O2SAT 98
== END 2024-06-10 01:36 | disposition home or self-care (01) ==
PROVIDERS: Emergency Provider Emergency Medicine; PCP Nurse Practitioner Family
DX: R05.9 Cough, unspecified (principal); R09.81 Nasal congestion; J02.9 Acute pharyngitis, unspecified
CPT/HCPCS: 87426; 94640; 99284; 71046; J7613

== ENCOUNTER 2024-09-28 18:57 | Outpatient (REF) | payer MEDICAID, SELFPAY | END 2024-09-28 18:58 | disposition home or self-care (01) | LOC: LBN 18:57 | PROVIDERS: PCP Nurse Practitioner Family; Visit Provider Physician Assistant Medical | DX: J02.9 Acute pharyngitis, unspecified (principal) | CPT/HCPCS: 87070 ==

== ENCOUNTER 2024-10-13 18:10 | Outpatient (REF) | payer MEDICAID, SELFPAY ==
[2024-10-13 19:03] LABS: Anion Gap 10.4 mmol/L (3-11); BUN 10 mg/dL (7-18); CO2 26.6 mmol/L (21.0-32.0); CREATININE 0.7 mg/dL (0.55-1.02); Calcium 9.3 mg/dL (8.5-10.1); Chloride 104 mmol/L (98-107); Estimated GFR 118.51 (mL/min/1.73m2); Glucose 86 mg/dL (74-106); Potassium 4.3 mmol/L (3.5-5.1); Sodium 141 mmol/L (136-145)
[2024-10-13 19:08] LABS: Hemoglobin A1C 5.8 % (<5.7)
[2024-10-14 20:15] LABS: HIV-1/2 Ag & Ab Screen Negative (Negative)
[2024-10-15 13:21] LABS: Bacterial Vaginosis (BV) Positive (Negative); Candida glabrata Negative (Negative); Candida species group Negative (Negative); Chlamydia Result Negative (Negative); GC Result Negative (Negative); Trichomonas vaginalis Negative (Negative)
== END 2024-10-13 18:11 | disposition home or self-care (01) ==
LOC: NCHCN 18:10
PROVIDERS: PCP Nurse Practitioner Family; Visit Provider Nurse Practitioner Family
DX: Z00.00 Encounter for general adult medical examination without abnormal findings (principal); Z11.3 Encounter for screening for infections with a predominantly sexual mode of transmission
CPT/HCPCS: 80048; 81513; 87389; 87481; 87491; 87591; 87661; 83036